=== PATIENT | male | born 1940 | race Caucasian/White ===

== ENCOUNTER → 2017-04-18 | Outpatient (CLI) | payer MEDICARE, BC ==
[~2017-04-18] MED LIST: ACTOS PO; ACTOS15 MG PO; ALLEGRA PO; ALLEGRA180 MG PO; AMBIEN PO; AMBIEN10 MG PO; ANDROGEL5 GM; ASPIRIN PO; ASPIRIN81 M2 PO; BENADRYL PO; CO Q-10 ER100 MG PO; CO Q-10200 MG; CORDARONE200 M1 PO; COREG PO; COREG6.25 MG PO; COZAAR100 MG PO; DIGITEK; EFFEXOR XR PO; EFFEXOR75 M1 PO; EFFEXOR75 MG; EFFIENT10 MG PO; FERROUS SULFATE PO; FLOMAX0.4 M1; FLOMAX0.4 M1 PO; FLOMAX0.4 MG PO; GABAPENTIN300 MG PO; GLUCOSAMINE500 M2 PO; HCTZ PO; HUMALOG100 U/ML; HUMULIN N100 U/ML; HUMULIN N100 U/ML SUBQ; HYDRALAZINE HC100 MG PO; HYDROCODON-ACE1 EAC4 PO; IMDUR PO; ISOSORBIDE MON120 M1 PO; LANOXIN PO; LANTUS100 U/ML; LIPITOR PO; LISINOPRIL PO; LORTAB 10/500 T1 TAB PO; NEXIUM PO; NIACIN500 M1; NITROGLYGERIN0.4 MG SL; NOVOLOG100 U/ML; NOVOLOG100 U/ML SUBQ; PAXIL PO; PLAVIX PO; PRAVACHOL80 MG; PRAVACHOL80 MG PO; PRO BIOTIC; PROZAC PO; SLO-NIACIN500 MG PO; TYLENOL ARTHRITIS; WELLBUTRIN XL150 M1 PO; [UNRECOGNIZED DRUG - OTHER] PO
--- NOTE | ~2017-04-18 | ST ---
Unit #: [id number] #: [id number] Patient: ROBERTO GONZALEZ [id number] [facility]. [place], [place] [address] [id number] O MR#: [id number] NAME: ORBERTO GONZALEZ. : 1940 SEX: M STUDY DATE/TIME: UNIT: [facility] ROOM: STUDY DESCRIPTION: Stress Test Attending Physician: Terence Waggoner M.D. Referring Physician: Terence Waggoner M.D. Primary Care Physician: Josesito Brantley M.D. CARDIOLOGY REPORT EXAM Lexiscan Cardiolite Stress Test DESCRIPTION Baseline EKG appears to be atrial fibrillation with controlled ventricular rate, 58 beats/minute. Occasional, possibly ventricular paced beat, occasional premature ventricular complex, poor R wave progression. Lexiscan is a four minute test with Lexiscan being injected within the first minute followed by Cardiolite. EKG during the test showed some ST-T wave abnormalities in lateral leads and some T wave inversion and occasional premature ventricular complex. The patient had no complaints of chest pain, palpitations or dizziness. Had increased shortness of breath and fatigueness which resolved in recovery phase. Maximum heart rate response was 71 beats/minute with a maximum blood pressure response of 163/88 mmHg. Cardiolite was injected after Lexiscan within the first minute of the test. Radionuclide test pending. Please correlate with nuclear images. Dictated by... Yenifer Pena A.P.R.N. for Kaity Evans/oswaldo TD: 04/18/2017 11:29 JOB #: [id number] Unit #: [id number] #: [id number] Patient: ROBERTO GONZALEZ CARDIOLOGY REPORT Page 1 of 1 X Yenifer Pena APRN CARDIOLOGY REPORT
--- NOTE | ~2017-04-18 | TH ---
Unit #: [id number] #: [id number] Patient: ROBERTO GONZALEZ [id number] [address] [id number] O MR#: [id number] NAME: ROBERTO GONZALEZ : 1940 SEX: M STUDY DATE/TIME: 04/18/2017 UNIT: [facility] ROOM: STUDY DESCRIPTION: NUCLEAR STUDY Attending Physician: Terence Waggoner M.D. Referring Physician: Terence Waggoner M.D. Primary Care Physician: Josesito Brantley M.D. CARDIOLOGY REPORT EXAM Nuclear Study DESCRIPTION This 76-year-old patient received 0.4 mg of Lexiscan intravenously, followed by 29.4 mCi of technetium-99m Cardiolite and images were obtained according to standard SPECT protocol. For rest images 10.98 mCi of Cardiolite was injected. Images were reviewed in both phases. FINDINGS Overall study quality is excellent. LV cavity size is increased in both images. There is no lung activity. RV is normal. Rotating raw data showed no significant artifact, soft tissue attenuation, or GI uptake. Review of SPECT images showed a severe decrease in the radiotracer concentration in a small inferolateral segment in the stress images. In the rest images, this defect is fixed. Gated images showed a severe hypokinesis of the inferolateral wall of LV with estimated LV ejection fraction 25%. IMPRESSION 1. Myocardial perfusion imaging is abnormal. 2. No evidence of stress-induced ischemia. 3. High likelihood of a large inferolateral infarct. 4. Severe hypokinesis of the inferolateral wall of the LV with an estimated left ventricular ejection fraction 25%. 5. Mild enlargement of the left ventricle. Dictated by... Kaity Martinez/mikki TD: 04/18/2017 17:53 JOB #: [id number] Unit #: [id number] #: [id number] Patient: ROBERTO GONZALEZ CARDIOLOGY REPORT Page 1 of 1 X Ga Chatman MD CARDIOLOGY REPORT
== END | disposition home or self-care (01) ==
LOC: CNUC 08:57
DX: I50.9 Heart failure, unspecified (principal); I25.10 Atherosclerotic heart disease of native coronary artery without angina pectoris; I51.7 Cardiomegaly
CPT/HCPCS: 78452; 93017; A9500; J2785